=== PATIENT | male | born 2005 | race Hispanic/Latino ===

== ENCOUNTER 2024-10-01 12:32 | Emergency (ER) | payer BC, SELFPAY ==
[2024-10-01 12:34] VITALS: BP 123/69
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
[2024-10-01] MEDS: MOTRIN 600 MG PO (15:59)
== END 2024-10-01 16:21 | disposition home or self-care (01) ==
LOC: EMR 12:32
PROVIDERS: EMERGENCY PHYSICIAN Emergency Medicine; FAMILY PHYSICIAN Family Medicine
DX: S90.31XA Contusion of right foot, initial encounter (principal); W16.522A Jumping or diving into swimming pool striking bottom causing other injury, initial encounter; Y93.11 Activity, swimming; Y92.34 Swimming pool (public) as the place of occurrence of the external cause; F41.9 Anxiety disorder, unspecified; F32.A Depression, unspecified
CPT/HCPCS: 99283; 73650